=== PATIENT | female | born 1990 | race Hispanic/Latino ===

== ENCOUNTER 2017-07-01 10:25 | Emergency (ER) | payer MEDICAID, OTHER, SELFPAY ==
[2017-07-01 11:02] LABS: APPEARANCE,URINE Clear (CLEAR); BASOPHILS % (AUTO) 0.1 % (0.0-5.0); BILIRUBIN,URINE Negative (NEGATIVE); COLOR,URINE Yellow (YELLOW); EOSINOPHILS % (AUTO) 0.1 % (0.0-8.0); GLUCOSE, URINE (UA) Negative (NEGATIVE); HEMATOCRIT 43.2 % (36-48); KETONES,URINE Negative (NEGATIVE); LEUKOCYTE ESTERASE ,URINE Trace (NEGATIVE); LYMPHOCYTES % (AUTO) 6.5 % (21.0-51.0); MEAN CORPUSCULAR HEMOGLOBIN 29.6 pg (27.0-33.0); MEAN CORPUSCULAR HGB CONC 34.3 g/dL (32.0-36.0); MEAN CORPUSCULAR VOLUME 86.5 fL (79-99); MONOCYTES % (AUTO) 3.4 % (3.0-13.0); NEUTROPHILS % (AUTO) 89.9 % (40.0-77.0); NITRATE,URINE Negative (NEGATIVE); OCCULT BLOOD,URINE Negative (NEGATIVE); PH,URINE 6.5 (5.0-8.0); PLATELET COUNT (AUTO) 317 K/uL (130-400); PROTEIN,URINE POS 1+ (NEGATIVE); RED BLOOD CELL COUNT(AUTO) 4.99 MIL/uL (4.00-5.50); RED CELL DISTRIBUTION WIDTH 13.2 % (11.0-15.5); UROBILINOGEN,URINE 0.2 mg/dL (0.2-1.0); WHITE BLOOD COUNT (AUTO) 15.5 K/uL (4.8-10.8)
[2017-07-01 11:05] LABS: HCG,QUAL RESULT NEGATIVE (NEGATIVE)
[2017-07-01 11:10] LABS: CREATININE 0.8 mg/dL (0.5-1.5); POTASSIUM 3.8 mmol/L (3.5-5.1)
[2017-07-01 11:14] LABS: ALBUMIN 3.4 g/dL (3.5-5.0); BACTERIA,URINE Rare /HPF (None Seen); BILIRUBIN,TOTAL 0.4 mg/dL (0.2-1.0); RBC,URINE 0-1 /HPF (0-1); SQUAMOUS EPITHELIAL CELL,UR Rare /LPF (0-2); TOTAL PROTEIN, SERUM 7.6 g/dL (6.0-8.3); WBC,URINE 0-1 /HPF (0-1)
== END 2017-07-01 13:45 | disposition home or self-care (01) ==
LOC: EDH 10:25
DX: K29.00 Acute gastritis without bleeding (principal)
CPT/HCPCS: 36415; 76705; 80053; 81001; 81025; 83690; 85025; 85651

== ENCOUNTER 2022-01-31 11:21 | Inpatient (IN) | payer MEDICAID ==
[~2022-01-31] VITALS: Ht 157.5 cm; Wt 84.4 kg
[~2022-01-31 11:21] MED LIST: MV-M1TAB66 PO
[2022-01-31] MEDS ORDERED: LACTATED RINGERS 500 ML 500 ML IV PRN (12:30)
[2022-01-31] MEDS ORDERED: ROPIVACAINE 0.2% 100ML VIAL 100 ML EP SCH (12:30)
[2022-01-31] MEDS ORDERED: AMPICILLIN 2GM+NS 100ML 100 ML IV SCH (12:30)
[2022-01-31] MEDS ORDERED: EPHEDRINE SULFATE 50 MG/ML AMPULE IVP PRN (12:30)
[2022-01-31] MEDS ORDERED: OXYTOCIN-LR 20 UNITS/1000 ML 1,000 ML IV SCH (12:30)
[2022-01-31] MEDS ORDERED: MEPERIDINE-PF 50 MG/ML SYG IVP PRN (12:30)
[2022-01-31] MEDS ORDERED: MEPERIDINE-PF 25 MG/ML SYG IM PRN (12:30)
[2022-01-31] MEDS ORDERED: NALOXONE HCL 0.4 MG/1 ML ML IV PRN (12:30)
[2022-01-31 12:39] LABS: APPEARANCE,URINE CLEAR (CLEAR); BILIRUBIN,URINE NEGATIVE (NEGATIVE); COLOR,URINE YELLOW (YELLOW); GLUCOSE, URINE (UA) NEGATIVE (NEGATIVE); KETONES,URINE NEGATIVE (NEGATIVE); LEUKOCYTE ESTERASE ,URINE SMALL (NEGATIVE); NITRATE,URINE NEGATIVE (NEGATIVE); OCCULT BLOOD,URINE MODERATE (NEGATIVE); PROTEIN,URINE NEGATIVE (NEGATIVE); UROBILINOGEN,URINE 0.2 mg/dL (0.2-1.0)
[2022-01-31] MEDS: LACTATED RINGERS 1000ML 1,000 ML IV PRN ×2 (12:40→20:02)
[2022-01-31] MEDS: OXYTOCIN-LR 20 UNITS/1000 ML 1,000 ML IV SCH (12:41)
[2022-01-31 12:55] LABS: HEMATOCRIT 32.7 % (36-48); MEAN CORPUSCULAR HEMOGLOBIN 26.2 pg (27.0-33.0); MEAN CORPUSCULAR HGB CONC 32.4 g/dL (32.0-36.0); MEAN CORPUSCULAR VOLUME 80.7 fL (79-99); RED BLOOD CELL COUNT(AUTO) 4.05 MIL/uL (4.00-5.50); RED CELL DISTRIBUTION WIDTH 15.1 % (11.0-15.5); WHITE BLOOD COUNT (AUTO) 7.1 K/uL (4.8-10.8)
[2022-01-31 13:13] LABS: BACTERIA,URINE Rare /HPF (None Seen); RBC,URINE 0-1 /HPF (0-1); SQUAMOUS EPITHELIAL CELL,UR Few /HPF (0-2); WBC,URINE 0-1 /HPF (0-1)
[2022-01-31] MEDS: AMPICILLIN 1GM+NS 50ML 50 ML IV SCH ×2 (17:00→21:07)
[2022-02-01] MEDS: AMPICILLIN 1GM+NS 50ML 50 ML IV SCH ×3 (00:39→09:03)
[2022-02-01] MEDS: LACTATED RINGERS 1000ML 1,000 ML IV PRN (01:45)
[2022-02-01] MEDS: OXYTOCIN-LR 20 UNITS/1000 ML 1,000 ML IV SCH (04:15)
[2022-02-01] MEDS ORDERED: ACETAMINOPHEN WITH CODEINE 1 TAB TAB PO PRN (10:00)
[2022-02-01] MEDS ORDERED: MEASLES/MUMPS/RUBELLA VACCINE, LIVE 0.5 ML/VIAL SQ PRN (10:00)
[2022-02-01] MEDS ORDERED: WITCH HAZEL 1 PAD TP PRN (10:00)
[2022-02-01] MEDS ORDERED: ACETAMINOPHEN 325 MG TAB PO PRN (10:00)
[2022-02-01] MEDS ORDERED: LANOLIN 30GM OINTMENT TP PRN (10:00)
[2022-02-01] MEDS ORDERED: DIPH,PERTUSS(ACELL),TET VAC/PF 0.5 ML VIAL IM PRN (10:00)
[2022-02-01] MEDS ORDERED: OXYTOCIN-LR 20 UNITS/1000 ML 1,000 ML IV SCH (10:00)
[2022-02-01] MEDS ORDERED: BENZOCAINE/LANOLIN/ALOE VERA 60 ML AEROSOL TP PRN (10:00)
[2022-02-01 11:30] VITALS: BP 110/70
[2022-02-01 16:02] VITALS: BP 117/78
[2022-02-01] MEDS: IBUPROFEN 600 MG TABLET PO PRN (16:36)
[2022-02-01 19:24] VITALS: BP 99/63
[2022-02-01] MEDS: DOCUSATE SODIUM 100 MG CAP PO SCH (20:01)
[2022-02-01 22:55] VITALS: BP 109/70
[2022-02-02 02:55] VITALS: BP 102/69
[2022-02-02 06:41] LABS: HEMATOCRIT 28.2 % (36-48); MEAN CORPUSCULAR HEMOGLOBIN 25.7 pg (27.0-33.0); MEAN CORPUSCULAR HGB CONC 31.2 g/dL (32.0-36.0); MEAN CORPUSCULAR VOLUME 82.5 fL (79-99); RED BLOOD CELL COUNT(AUTO) 3.42 MIL/uL (4.00-5.50); RED CELL DISTRIBUTION WIDTH 15.3 % (11.0-15.5); WHITE BLOOD COUNT (AUTO) 7.3 K/uL (4.8-10.8)
[2022-02-02 07:09] VITALS: BP 105/81
[2022-02-02] MEDS: DOCUSATE SODIUM 100 MG CAP PO SCH (08:24)
[2022-02-02] MEDS: IBUPROFEN 600 MG TABLET PO PRN (08:26)
== END 2022-02-02 11:50 | disposition home or self-care (01) | DRG 560 ==
LOC: LDH 11:38 → WSH 02-01 11:30
PROVIDERS: ADMIT Obstetrics & Gynecology; ATTEND Obstetrics & Gynecology
PROC: 10E0XZZ Delivery of Products of Conception, External Approach (ICD-10-PCS; principal; 2022-02-01)
PROC: 10907ZC Drainage of Amniotic Fluid, Therapeutic from Products of Conception, Via Natural or Artificial Opening (ICD-10-PCS; 2022-02-01)
PROC: 3E0234Z Introduction of Serum, Toxoid and Vaccine into Muscle, Percutaneous Approach (ICD-10-PCS; 2022-02-01)
DX: O99.824 Streptococcus B carrier state complicating childbirth (principal); Z37.0 Single live birth; Z23 Encounter for immunization; Z3A.38 38 weeks gestation of pregnancy
CPT/HCPCS: 36415; 81001; 85027; 86592; 86850; 86900; 86901; 90707; A4351; G0378; J0290; J2590; J7120